=== PATIENT | female | born 2000 | race Caucasian/White ===

== ENCOUNTER 2023-03-01 14:03 | Emergency (ER) | payer OTHER ==
[~2023-03-01] VITALS: Ht 154.9 cm; Wt 69.9 kg
[2023-03-01] MEDS ORDERED: PRENATAL TABLE1 EAC1 PO (14:18)
[2023-03-01 15:06] LABS: BILIRUBIN Negative (Negative); BLOOD Negative (Negative); CLARITY Turbid (Clear); COLOR Yellow (Yellow); GLUCOSE Negative (Negative); KETONE Trace (Negative); LEUKO ESTERASE Negative (Negative); NITRITE Negative (Negative); PH 7.5 (4.5-8.0)
[2023-03-01 15:13] LABS: BACTERIA 1+; RBC 0-2 rbc/hpf (0-2); WBC 0-2 wbc/hpf (0-5)
== END 2023-03-01 15:20 | disposition home or self-care (01) ==
LOC: ED 14:03
PROVIDERS: Family Medicine
DX: O99.612 Diseases of the digestive system complicating pregnancy, second trimester (principal); K92.89 Other specified diseases of the digestive system; M54.50 Low back pain, unspecified; R10.2 Pelvic and perineal pain; Z3A.20 20 weeks gestation of pregnancy

== ENCOUNTER 2023-08-03 10:38 | Emergency (ER) | payer OTHER ==
[~2023-08-03] VITALS: Ht 152.4 cm; Wt 70.8 kg
[~2023-08-03 10:38] MED LIST: PRENATAL TABLE1 EAC1 PO
[2023-08-03] MEDS ORDERED: MELOXICAM15 MG PO (11:09)
[2023-08-03] MEDS ORDERED: AMOX-CLAV 875-1 EACH PO (11:09)
== END 2023-08-03 11:13 | disposition home or self-care (01) ==
LOC: ED 10:38
DX: K04.7 Periapical abscess without sinus (principal); K08.89 Other specified disorders of teeth and supporting structures; K02.9 Dental caries, unspecified; R22.9 Localized swelling, mass and lump, unspecified

== ENCOUNTER 2024-06-13 13:50 | Emergency (ER) | payer OTHER ==
[~2024-06-13] VITALS: Ht 154.9 cm; Wt 74.8 kg
[~2024-06-13 13:50] MED LIST changes: +AMOX-CLAV 875-1 EACH PO; +MELOXICAM15 MG PO
[2024-06-13] MEDS ORDERED: Ketorolac Tromethamine 30 MG/ML VIAL IV ONE (14:40)
[2024-06-13] MEDS ORDERED: Metoclopramide Hydrochloride 10 MG/2 ML AMP IV ONE (14:40)
[2024-06-13] MEDS ORDERED: diphenhydrAMINE hydrochloride 50 MG/ML VIAL IV ONE (14:40)
[2024-06-13] MEDS ORDERED: SODIUM CHLORIDE 0.9% 1,000 ML IV ONE (14:40)
[2024-06-13] MEDS ORDERED: PENICILLIN VK500 MG PO (16:16)
[2024-06-13] MEDS ORDERED: PENICILLIN V POTASSIUM 500 MG TAB PO ONE (16:20)
== END 2024-06-13 16:36 | disposition home or self-care (01) ==
LOC: ED 13:50
DX: R51.9 Headache, unspecified (principal); K08.89 Other specified disorders of teeth and supporting structures

== ENCOUNTER 2024-08-02 15:49 | Emergency (ER) | payer OTHER ==
[~2024-08-02] VITALS: Ht 152.4 cm; Wt 76.2 kg
[~2024-08-02 15:49] MED LIST changes: +PENICILLIN VK500 MG PO
[2024-08-02] MEDS ORDERED: methylPREDNISolone sod succ 125 MG VIAL IM ONE (16:05)
[2024-08-02] MEDS ORDERED: Albuterol Sulf/Ipratropium 3 ML VIAL NEB ONE (16:05)
[2024-08-02] MEDS ORDERED: PREDNISONE50 MG PO (17:39)
[2024-08-02] MEDS ORDERED: VIBRAMYCIN100 MG PO (17:39)
[2024-08-02] MEDS ORDERED: ALBUTEROL 8 GM INHALER INH ONE (17:40)
== END 2024-08-02 17:50 | disposition home or self-care (01) ==
LOC: ED 15:49
DX: J18.9 Pneumonia, unspecified organism (principal)